=== PATIENT | male | born 2000 | race Caucasian/White ===

== ENCOUNTER 2022-04-21 16:10 | Emergency (ER) | payer OTHER, SELFPAY ==
--- NOTE | ~2022-04-21 | CT_ITS ---
EXAMINATION: CT HEAD WITHOUT CONTRAST CT CERVICAL SPINE WITHOUT CONTRAST CLINICAL INFORMATION: Fall. Neck pain. COMPARISON: None TECHNIQUE: CT of the head and cervical spine were performed without intravenous contrast. Multiplanar reformats were rendered and reviewed. This CT examination was performed using dose optimization techniques as appropriate, variously including the following: *Automated exposure control *Adjustment of mA and/or kV according to patient size (this includes techniques or standardized protocols for targeted exams where dose is matched to indication/reason for exam; i.e. extremities or head) *Use of iterative reconstruction technique DLP: 1396 mGy-cm. FINDINGS: CT head: There is no intracranial hemorrhage, extra-axial collection, mass effect, or territorial infarction. The ventricles are normal in size without hydrocephalus. Craniotomy changes are noted within the frontal calvarium. There is significant thinning and myelomalacia within the corpus callosum. The visualized paranasal sinuses and mastoid air cells are clear. CT cervical spine: The cervical vertebral bodies maintain normal heights and alignment. No fracture is seen. The craniovertebral junction is intact. There is no significant disc height loss. There is no significant narrowing of the spinal canal or neural foramina. The cervical soft tissues are within normal limits. CT/CT head/brain wo IV con IMPRESSION: CT HEAD: No acute intracranial abnormality. 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 CT CERVICAL SPINE: No cervical spine fracture or traumatic malalignment.
--- NOTE | ~2022-04-21 | CT_ITS ---
EXAMINATION: CT HEAD WITHOUT CONTRAST CT CERVICAL SPINE WITHOUT CONTRAST CLINICAL INFORMATION: Fall. Neck pain. COMPARISON: None TECHNIQUE: CT of the head and cervical spine were performed without intravenous contrast. Multiplanar reformats were rendered and reviewed. This CT examination was performed using dose optimization techniques as appropriate, variously including the following: *Automated exposure control *Adjustment of mA and/or kV according to patient size (this includes techniques or standardized protocols for targeted exams where dose is matched to indication/reason for exam; i.e. extremities or head) *Use of iterative reconstruction technique DLP: 1396 mGy-cm. FINDINGS: CT head: There is no intracranial hemorrhage, extra-axial collection, mass effect, or territorial infarction. The ventricles are normal in size without hydrocephalus. Craniotomy changes are noted within the frontal calvarium. There is significant thinning and myelomalacia within the corpus callosum. The visualized paranasal sinuses and mastoid air cells are clear. CT cervical spine: The cervical vertebral bodies maintain normal heights and alignment. No fracture is seen. The craniovertebral junction is intact. There is no significant disc height loss. There is no significant narrowing of the spinal canal or neural foramina. The cervical soft tissues are within normal limits. CT/CT cervical spine wo IV con IMPRESSION: CT HEAD: No acute intracranial abnormality. 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 CT CERVICAL SPINE: No cervical spine fracture or traumatic malalignment.
--- NOTE | ~2022-04-21 | XR_ITS ---
EXAMINATION: XR PELVIS CLINICAL INFORMATION: Fall, unable to ambulate with pain COMPARISON: None TECHNIQUE: AP view of the pelvis. FINDINGS: No acute fracture or dislocation. Hip joint spaces are maintained. Pubic symphysis and SI joints are congruent and intact. XR/XR pelvis 1-2V IMPRESSION: No acute fracture or dislocation.
--- NOTE | ~2022-04-21 | XR_ITS ---
EXAMINATION: XR KNEE, RIGHT CLINICAL INFORMATION: Fall. Pain. COMPARISON: None TECHNIQUE: Four views of the right knee. FINDINGS: Bones and soft tissues are normal. No fracture or joint effusion. Alignment is anatomic. Joint spaces are well maintained. No abnormal soft tissue calcification. XR/XR knee RT 2V IMPRESSION: Normal right knee.
--- NOTE | ~2022-04-21 | XR_ITS ---
EXAMINATION: XR KNEE, LEFT CLINICAL INFORMATION: Pain. Fall. COMPARISON: None TECHNIQUE: Two views of the left knee. FINDINGS: Bones and soft tissues are normal. No fracture or joint effusion. Alignment is anatomic. Joint spaces are well maintained. No abnormal soft tissue calcification. XR/XR knee LT 2V IMPRESSION: Normal left knee.
--- NOTE | ~2022-04-21 | XR_ITS ---
EXAMINATION: XR CHEST CLINICAL INFORMATION: Fall, trauma to chest with pain COMPARISON: None TECHNIQUE: Frontal view of the chest was obtained. FINDINGS: No airspace consolidation. No pleural effusion or pneumothorax visualized. Cardiomediastinal silhouette is within normal limits. No mediastinal widening. Normal pulmonary vascularity. No acute osseous injury identified. Mild levoconvex curvature of the thoracic spine. XR/XR chest 1V IMPRESSION: No acute pulmonary disease.
--- NOTE | 2022-04-21 17:50 | ED.GENADULT ---
HPI - General Adult General Chief complaint: Fall Stated complaint: fall today, cant walk, non verbal Time Seen by Provider: 04/21/22 21:29 Related Data Previous Rx's Medication Instructions Recorded ibuprofen 100 mg/5 mL oral 400 mg (20 mL) PO Q6H PRN pain 04/21/22 suspension #473 mL Allergies Allergy/AdvReac Type Severity Reaction Status Date / Time No Known Allergies Allergy Unverified 02/09/20 18:21 [facility] Past Medical History Medical History Autism Intellectual disability Social History Social History Advance Directives: No Advance Directives Information Provided: No Physical Exam ED Vital Signs: BMI result Body Mass Index 24.3 Course Reevaluation(s) Reevaluation #1: 21 year old male hx of intellectual disability/autism, seizures presents to ED s/p fall here with mothers significant other. Unknown details of fall unkown loc or headstrike. Patient fell at school and fell into a desk, he is usually able to ambulate w/o difficulty however today having difficulties after fall. Patient non verbal. Unable to provide hx. Not on blood thinners. Acting normal self energywise according to web support engineer. Tika to obtain ROS PE- non verbal however benign no distracting injuries. Moving all extremities Plan- ct, head, neck, xray of knees, pelvis, chest Time: 17:53 Reevaluation #2: I did a rapid medical exam on this patient I was not the primary provider, patient was evaluated by provider by on 04/21/22, please refer to that providers full chart Medications Administered Discontinued Medications Generic Name Dose Route Start Last Admin Trade Name Freq PRN Reason Stop Dose Admin Ibuprofen 600 mg 04/21/22 21:36 04/21/22 21:39 Ibuprofen Oral Susp 200 Mg/10 Ml Oral.Susp PO 04/21/22 21:37 600 mg ONCE ONE Administration Discharge Plan Discharge Clinical Impression: Fall, Multiple contusions Patient Disposition: Home, Self-Care Instructions: Contusion in Adults (ED) Additional Instructions: Please follow-up with your primary care physician tomorrow. If you have any worsening or new symptoms, please return to the emergency room or call 911 Prescriptions: New ibuprofen 100 mg/5 mL suspension 400 mg PO Q6H PRN (Reason: pain) Qty: 473 1RF Interventions: ED Discharge Assessment Last Done: 04/21/22 22:00 Discharge Date/Time: 04/21/22 22:01
[2022-04-21 17:53] VITALS: TEMP 37.1; O2SAT 98; BMI 24.3
--- NOTE | 2022-04-21 21:36 | ED_ITS ---
HPI - Fall General Chief Complaint: Fall Stated Complaint: fall today, cant walk, non verbal Time Seen by Provider: 04/21/22 21:29 Source: family Limitations: no limitations History of Present Illness HPI Narrative: Patient comes to emergency room accompanied by his father. Patient has intellectual disability, nonverbal with autism. The father said that they receive a phone call from school, seems that the patient fell, landed on his knees. Today after school, the patient had a hard time walking, seems that he was complaining of bilateral knee pain. Since the patient is nonverbal, the parents decided to bring him to the hospital for further evaluation. At this time, patient is not complaining of any pain or is in any obvious distress. As mentioned above, patient cannot give any significant history. Related Data Previous Rx's Medication Instructions Recorded ibuprofen 100 mg/5 mL oral 400 mg (20 mL) PO Q6H PRN pain 04/21/22 suspension #473 mL Allergies Allergy/AdvReac Type Severity Reaction Status Date / Time No Known Allergies Allergy Unverified 02/09/20 18:21 Review of Systems Review of Systems: Yes Unobtainable due to mental condition (Intellectual disability with autism) [facility] Past Medical History Medical History Autism Intellectual disability Social History Social History Advance Directives: No Advance Directives Information Provided: No Physical Exam Vital Signs: Vital Signs: Last Vital Signs Temp 98.7 F 04/21/22 17:53 Pulse Ox 98 04/21/22 17:53 O2 Del Method 04/21/22 17:53 BMI result Body Mass Index 24.3 Const: Other: Appearance: Alert. No acute distress. Eyes: Pupils equal, round and reactive to light. ENT: Pharynx normal. Neck: Normal inspection. Neck supple. No lymph nodes noted. No crepitus CVS: Normal heart rate and rhythm. Pulses normal. Normal S1 and S2 Respiratory: No respiratory distress. Breath sounds normal. No Wheezing. No rales Abdomen: Soft and nontender. No rigidity. No distention. Skin: Skin warm and dry. Normal skin color. Normal skin turgor. No ecchymosis Extremities: No lower extremity edema. No Lacerations. No Rash, patient is able to flex and extend both knees bilaterally. Neuro:No motor deficit. No sensory deficit. Moving all extremities. No slurred speech. CN 2 through 12 grossly intact Psych: calm, cooperative Course Course Course Narrative: I discussed with the patient's father that the CT scan of the head and cervical spine are negative, x-rays of the pelvis, chest and bilateral knees are negative. Physically, patient does not seem to be in physical distress or in pain. Patient was given 1 dose of p.o. ibuprofen. I discussed with the patient's father if there is anything that we could do to help him at home, they are all set, patient does not cooperate with crutches or with braces, the father prefers to take him home as is and they will alternate Tylenol and ibuprofen at home. Discharge Plan Discharge Clinical Impression: Fall, Multiple contusions Patient Disposition: Home, Self-Care Instructions: Contusion in Adults (ED) Additional Instructions: Please follow-up with your primary care physician tomorrow. If you have any worsening or new symptoms, please return to the emergency room or call 911 Prescriptions: New ibuprofen 100 mg/5 mL suspension 400 mg PO Q6H PRN (Reason: pain) Qty: 473 1RF
[2022-04-21] MEDS: Ibuprofen Oral Susp 200 MG/10 ML ORAL.SUSP 600 MG PO (21:39)
== END 2022-04-21 22:01 | disposition home or self-care (01) ==
PROVIDERS: Emergency Provider Emergency Medicine
DX: S80.02XA Contusion of left knee, initial encounter (principal); S80.01XA Contusion of right knee, initial encounter; W19.XXXA Unspecified fall, initial encounter; F84.0 Autistic disorder; F79 Unspecified intellectual disabilities; Y93.9 Activity, unspecified; Y92.218 Other school as the place of occurrence of the external cause; Y99.9 Unspecified external cause status
CPT/HCPCS: 70450; 71045; 72125; 72170; 73560; 99283; 99284